=== PATIENT | male | born 1990 | race Caucasian/White ===

== ENCOUNTER 2019-10-23 12:56 | Emergency (ER) | payer SELFPAY ==
--- NOTE | 2019-10-23 16:14 | EDM.PDOC ---
ED HPI GENERAL MEDICAL PROBLEM - General Chief Complaint: General Stated Complaint: SUSPECTED HERNIA Time Seen by Provider: 10/23/19 16:10 Source of Information: Reports: Patient, RN History Limitations: Reports: No Limitations - History of Present Illness INITIAL COMMENTS - FREE TEXT/NARRATIVE: 29-year-old male presents to the ER with complaining of right scrotal swelling and discomfort that began 5 hours ago. Patient reports he is new to the community and was standing at work when he started having scrotal plain. he reported that his pain also for unattended at work. He reports he had a vasectomy a year ago. he has been breathing in the ER for over 3 hours and now rates his pain as a 1/10. He denies any history of scrotal problems, testicle torsion or testicular trauma. Denies any history of STDs. Denies any urinary symptoms or bloody urine. States had his job is nonstrenuous. Has not tried anything for his symptoms. left leg right testicle Pain Score (Numeric/FACES): 4 ED ROS GENERAL - Review of Systems Review Of Systems: Comprehensive ROS is negative, except as noted in HPI. ED EXAM, GENERAL - Physical Exam Exam: See Below General Appearance: Alert, Mild Distress Respiratory/Chest: No Respiratory Distress, Lungs Clear, Normal Breath Sounds, No Accessory Muscle Use, Chest Non-Tender Cardiovascular: Normal Peripheral Pulses, Regular Rate, Rhythm, No Edema, No Gallop, No JVD, No Murmur, No Rub GI/Abdominal: Normal Bowel Sounds, Soft, Non-Tender, No Organomegaly, No Distention, No Abnormal Bruit, No Mass (Male) Exam: No Hernia, Circumcised, Cremasteric Reflex, Scrotal Swelling (mild), Scrotum Tenderness (R) (mild). No: Inguinal Lymphadenopathy, Urethral Discharge Rectal (Males) Exam: Normal Exam Back Exam: Normal Inspection, Full Range of Motion, NT Neurological: Alert, Oriented, CN II-XII Intact, Normal Cognition, Normal Gait, No Motor/Sensory Deficits Psychiatric: Normal Affect, Normal Mood Skin Exam: Warm Lymphatic: No Adenopathy Course - Vital Signs Last Recorded V/S: Last Vital Signs Temp 98.6 F 10/23/19 14:06 Pulse 90 10/23/19 14:06 Resp 18 10/23/19 14:06 BP 116/72 10/23/19 14:06 Pulse Ox 98 10/23/19 14:06 - Re-Assessments/Exams Free Text/Narrative Re-Assessment/Exam: Reviewed exam finding with patient. He states the swollen has subsided since sitting in the ER. Pain is milder than it was before without any intervention. 10/23/19 16:36 10/24/19 08:06 Departure - Departure Time of Disposition: 16:44 Disposition: Home, Self-Care 01 Condition: Good Clinical Impression: Swelling of scrotum - Discharge Information Instructions: Scrotal Swelling Referrals: PCP,None [Primary Care Provider] - Forms: ED Department Discharge Additional Instructions: establish on saturday and get a scrotal uS. Apply ice to scrotal area and rest. Sepsis Event Note (ED) - Evaluation Sepsis Screening Result: No Definite Risk
== END 2019-10-23 16:59 | disposition home or self-care (01) ==
LOC: DL.ED 12:56
DX: N50.89 Other specified disorders of the male genital organs (principal)
CPT/HCPCS: 99283